=== PATIENT | male | born 1945 | race Caucasian/White ===

== ENCOUNTER 2021-12-06 13:41 | Emergency (ER) | payer MEDICARE, OTHER ==
[~2021-12-06] VITALS: Ht 177.8 cm; Wt 95.2 kg
[~2021-12-06 13:41] MED LIST: ACET325 PO; ASPI325 PO; ASPI81CH PO; FURO20 PO; GABA300 PO; GLIP10 PO; HYDR1TAB94 PO; LEVO750 PO; LISI5 PO; LOSA50 PO; LOVA40 PO; METF500 PO; METO25 PO; OXYC5 PO
[2021-12-06 14:36] LABS: BASOPHILS ABSOLUTE AUTO 0.03 K/mm3 (0.00-0.23); BASOPHILS PERCENT AUTO 0 % (0-2); EOSINOPHILS ABSOLUTE AUTO 0.21 K/mm3 (0.00-0.68); EOSINOPHILS PERCENT AUTO 2 % (0-6); Hematocrit 37.3 % (37.0-53.0); Hemoglobin 12.8 g/dL (13.5-17.5); IMMATURE GRAN ABSOLUTE AUTO 0.02 K/mm3 (0.00-0.10); IMMATURE GRAN PERCENT AUTO 0 % (0-1); LYMPHOCYTES ABSOLUTE AUTO 1.14 K/mm3 (0.84-5.20); LYMPHOCYTES PERCENT AUTO 13 % (21-46); MONOCYTES ABSOLUTE AUTO 0.67 K/mm3 (0.16-1.47); MONOCYTES PERCENT AUTO 8 % (4-13); Mean Corpuscular HGB 31.5 pg (26.0-34.0); Mean Corpuscular HGB Conc 34.3 g/dL (31.5-36.5); Mean Corpuscular Volume 92 fL (80-100); Mean Platelet Volume 11.1 fL (9.1-12.4); NEUTROPHILS ABSOLUTE AUTO 6.81 K/mm3 (1.96-9.15); NEUTROPHILS PERCENT AUTO 77 % (41-73); Platelet Count 164 K/mm3 (150-400); RDW Coefficient Variation 12.4 % (11.7-14.2); RDW Standard Deviation 41.5 fL (35.1-46.3); Red Blood Cell Count 4.06 M/mm3 (4.30-5.90); White Blood Cell Count 8.88 K/mm3 (4.00-11.30)
[2021-12-06 14:37] LABS: Source, Urine Clean Catch
[2021-12-06 14:40] LABS: Appearance, Urine Clear (Clear); Bilirubin, Urine Neg (Neg); Blood, Urine 3+ (Neg); Color, Urine Yellow (P-Yellow); Glucose Qualitative, Urine Neg (Neg); Ketones, Urine 1+ (Neg); Leukocyte Esterase, Urine Neg (Neg); Nitrite, Urine Neg (Neg); Protein, Urine 2+ (Neg); Urobilinogen, Urine NORM (Normal)
[2021-12-06 14:47] LABS: Bacteria Few /hpf; Squamous Epithelial Cells Not Seen /hpf (Few); White Blood Cells, Urine 0-2 /hpf (0-5)
[2021-12-06 14:57] LABS: Albumin, Blood 3.5 g/dL (3.4-5.0); Albumin/Globulin Ratio 0.8 (0.8-1.8); Bilirubin, Total 0.6 mg/dL (0.1-1.0); Bun/Creatinine Ratio 10.9 (12.0-20.0); Calcium, Blood 11.4 mg/dL (8.5-10.1); Creatinine, Blood 3.41 mg/dL (0.60-1.20); Globulin, Blood 4.2 g/dL (2.2-4.0); Potassium, Blood 4.4 mmol/L (3.5-5.5); Total Protein, Blood 7.7 g/dL (6.4-8.2)
== END 2021-12-06 22:00 | disposition home or self-care (01) ==
LOC: ER 13:41
PROVIDERS: Physician Assistant
DX: K59.00 Constipation, unspecified (principal); R10.9 Unspecified abdominal pain; I10 Essential (primary) hypertension; E11.9 Type 2 diabetes mellitus without complications; Z79.899 Other long term (current) drug therapy; Z79.82 Long term (current) use of aspirin; Z79.84 Long term (current) use of oral hypoglycemic drugs; Z87.891 Personal history of nicotine dependence
CPT/HCPCS: 36415; 74019; 80053; 81001; 85025; A9270; J7030

== ENCOUNTER 2023-04-25 12:11 | Inpatient (IN) | payer OTHER ==
[~2023-04-25] VITALS: Ht 177.8 cm; Wt 89.8 kg
[2023-04-25] MEDS ORDERED: ALLO100 PO (13:35)
[2023-04-25] MEDS ORDERED: TAMS.4ER PO (13:35)
[2023-04-25] MEDS ORDERED: CLOBETASOL EMOL15 G1 TOP (13:36)
[2023-04-25] MEDS ORDERED: SODBIC650 PO (13:36)
[2023-04-25] MEDS ORDERED: FURO20 PO (13:36)
[2023-04-25] MEDS ORDERED: INSULANI SC (13:37)
[2023-04-25] MEDS ORDERED: KETO15TC TOP (13:37)
[2023-04-25] MEDS ORDERED: Amaryl2 MG PO (13:38)
[2023-04-25] MEDS ORDERED: AMLO10 PO (13:40)
[2023-04-25] MEDS ORDERED: DOC250 PO (13:40)
[2023-04-25] MEDS ORDERED: FERROUS GLUCON240 MG PO (13:40)
[2023-04-25] MEDS ORDERED: NS 500 ML IV SCH (14:15)
[2023-04-25] MEDS ORDERED: FLU VACC QS2023-24(6MOS UP)/PF 60 MCG/0.5 ML SYRINGE IM SCH (17:00)
[2023-04-25] MEDS ORDERED: Acetaminophen 325 MG TABLET PO PRN (17:00)
[2023-04-25] MEDS ORDERED: Azithromycin 500 MG in NS 250 ML IV SCH (18:15)
[2023-04-25] MEDS ORDERED: Insulin Regular 100 UNIT/ML 10ML Vial SC SCH (20:00)
[2023-04-25 20:27] VITALS: BP 115/77
[2023-04-25] MEDS ORDERED: Docusate Sodium 250 MG Cap PO PRN (20:50)
[2023-04-25] MEDS ORDERED: Insulin Glargine-Yfgn 100 Unit/mL 3 ML SYR SC SCH (21:00)
[2023-04-25] MEDS ORDERED: Apixaban 5 MG Tab PO SCH ×2 (21:00)
[2023-04-25] MEDS ORDERED: Tamsulosin HCl 0.4 MG Cap PO SCH (21:00)
[2023-04-25] MEDS ORDERED: Metoprolol Tartrate 25 MG Tab PO SCH (21:00)
[2023-04-25] MEDS ORDERED: METO25 PO (21:22)
[2023-04-25] MEDS ORDERED: METO50 PO (21:22)
[2023-04-25] MEDS ORDERED: ATOR10 PO (21:23)
[2023-04-26 03:21] VITALS: BP 140/91
--- NOTE | 2023-04-26 04:00 | NUR ---
SHIFT SUMMARY 78 YR M ADMITTED ON 03/25/23. FULL CODE. PT HAD NO C/O PAIN OR DISCOMFORT THIS SHIFT BUT STATED THAT HE IS FRUSTRATED WITH COUGHING. EVENING BS WAS 272 AND GIVEN 20 UNITS OF GLARGINE. PT IS PLEASANT AND COOPERATIVE WITH CARE. ASIDE FROM CURRENT ILLNESS, PT STATES THAT HE IS OTHERWISE HEALTHY AND INDEPENDANT. HE USES URINAL AT BEDSIDE AND IS ABLE TO CALL APPROPRIATELY FOR ASSISTANCE. PLAN IS FOR NUCLEAR MED TEST TODAY.
[2023-04-26 05:04] LABS: BASOPHILS ABSOLUTE AUTO 0.02 K/mm3 (0.00-0.23); BASOPHILS PERCENT AUTO 0 % (0-2); EOSINOPHILS ABSOLUTE AUTO 0.01 K/mm3 (0.00-0.68); EOSINOPHILS PERCENT AUTO 0 % (0-6); Hematocrit 37.6 % (37.0-53.0); Hemoglobin 12.8 g/dL (13.5-17.5); IMMATURE GRAN ABSOLUTE AUTO 0.06 K/mm3 (0.00-0.10); IMMATURE GRAN PERCENT AUTO 1 % (0-1); LYMPHOCYTES ABSOLUTE AUTO 0.84 K/mm3 (0.84-5.20); LYMPHOCYTES PERCENT AUTO 9 % (21-46); MONOCYTES PERCENT AUTO 7 % (4-13); Mean Corpuscular HGB 30.8 pg (26.0-34.0); Mean Corpuscular Volume 90 fL (80-100); Mean Platelet Volume 11.6 fL (9.1-12.4); NEUTROPHILS ABSOLUTE AUTO 7.73 K/mm3 (1.96-9.15); NEUTROPHILS PERCENT AUTO 84 % (41-73); Platelet Count 175 K/mm3 (150-400); RDW Coefficient Variation 13.2 % (11.7-14.2); RDW Standard Deviation 43.7 fL (35.1-46.3); Red Blood Cell Count 4.16 M/mm3 (4.30-5.90); White Blood Cell Count 9.26 K/mm3 (4.00-11.30)
[2023-04-26 06:42] LABS: Albumin, Blood 2.4 g/dL (3.4-5.0); Albumin/Globulin Ratio 0.5 (0.8-1.8); Bilirubin, Total 0.5 mg/dL (0.1-1.0); Bun/Creatinine Ratio 17.8 (12.0-20.0); Calcium, Blood 10.7 mg/dL (8.5-10.1); Creatinine, Blood 1.97 mg/dL (0.60-1.20); Globulin, Blood 4.4 g/dL (2.2-4.0); Potassium, Blood 3.5 mmol/L (3.5-5.5); Total Protein, Blood 6.8 g/dL (6.4-8.2)
[2023-04-26] MEDS ORDERED: Insulin Human Lispro 100 Units/ML 3ML Syringe SC SCH ×2 (07:30→08:30)
[2023-04-26 07:46] VITALS: BP 175/159
[2023-04-26] MEDS ORDERED: NS 250 ML IV PRN (08:35)
[2023-04-26 08:38] LABS: Adenovirus Not Detected (NOT DETECT); Bordetella pertussis Not Detected (NOT DETECT); Coronavirus 229E Not Detected (NOT DETECT); Coronavirus HKU1 Not Detected (NOT DETECT); Coronavirus NL63 Not Detected (NOT DETECT); Coronavirus OC43 Not Detected (NOT DETECT); Human Metapneumovirus Not Detected (NOT DETECT); Human Rhinovirus/Enterovirus Not Detected (NOT DETECT); Influenza A/2009-H1 Not Detected (NOT DETECT); Influenza A/H1 Not Detected (NOT DETECT); Influenza A/H3 Not Detected (NOT DETECT); Influenza B Not Detected (NOT DETECT); Parainfluenza Virus 1 Not Detected (NOT DETECT); Parainfluenza Virus 2 Not Detected (NOT DETECT); Parainfluenza Virus 3 Not Detected (NOT DETECT); Parainfluenza Virus 4 Not Detected (NOT DETECT); Respiratory Syncytial Virus Not Detected (NOT DETECT); SARS-Cov-2 (COVID-19), BioFire Detected (NOT DETECT)
[2023-04-26 08:39] LABS: Chlamydophila pneumoniae Not Detected (NOT DETECT); Mycoplasma pneumoniae Not Detected (NOT DETECT)
[2023-04-26] MEDS ORDERED: AmLODIPine Besylate 5 MG Tab PO SCH (09:00)
[2023-04-26] MEDS ORDERED: Ferrous Gluconate 325 MG Tablet PO SCH (09:00)
[2023-04-26] MEDS ORDERED: Furosemide 20 MG Tab PO SCH (09:00)
[2023-04-26] MEDS ORDERED: Atorvastatin 10 MG Tab PO SCH (09:00)
[2023-04-26] MEDS ORDERED: GuaiFENesin 200 MG IR Tab PO PRN (09:00)
[2023-04-26] MEDS ORDERED: CefTRIAXone Sodium 2,000 MG in NS 100 ML IV SCH (09:00)
[2023-04-26] MEDS ORDERED: Allopurinol 100 MG Tab PO SCH (09:00)
[2023-04-26] MEDS ORDERED: GuaiFENesin 200 MG IR Tab PO ONE (09:00)
[2023-04-26] MEDS ORDERED: Aspirin 81 MG Chew PO SCH (09:00)
[2023-04-26] MEDS ORDERED: Metoprolol Tartrate 25 MG Tab PO SCH (09:00)
[2023-04-26 11:09] VITALS: BP 116/76
[2023-04-26 14:14] LABS: Acinetobacter baumannii DNA Not Detected copy/mL (NOT DETECT); Adenovirus DNA Not Detected (NOT DETECT); Chlamydia pneumonia Not Detected (NOT DETECT); Enterobacter cloacae DNA Not Detected copy/mL (NOT DETECT); Escherichia coli DNA Not Detected copy/mL (NOT DETECT); Haemophilus influenzae DNA Not Detected copy/mL (NOT DETECT); Human Coronavirus RNA Not Detected (NOT DETECT); Human Metapneumovirus RNA Not Detected (NOT DETECT); Influenza virus A RNA Not Detected (NOT DETECT); Influenza virus B RNA Not Detected (NOT DETECT); Klebsiella aerogenes DNA Not Detected copy/mL (NOT DETECT); Klebsiella oxytoca DNA Not Detected copy/mL (NOT DETECT); Klebsiella pneumoniae DNA Not Detected copy/mL (NOT DETECT); Legionella pneumophila Not Detected (NOT DETECT); Moraxella catarrhalis DNA Not Detected copy/mL (NOT DETECT); Mycoplasma pneumoniae Not Detected (NOT DETECT); Parainfluenza virus RNA Not Detected (NOT DETECT); Proteus sp DNA Not Detected copy/mL (NOT DETECT); Pseudomonas aeruginosa DNA Not Detected copy/mL (NOT DETECT); Respiratory syncytial Vir RNA Not Detected (NOT DETECT); Rhinovirus+Enterovirus RNA Not Detected (NOT DETECT); Serratia marcescens DNA Not Detected copy/mL (NOT DETECT); Staphylococcus aureus DNA Not Detected copy/mL (NOT DETECT); Streptococcus agalactiae DNA Not Detected copy/mL (NOT DETECT); Streptococcus pneumoniae DNA Not Detected copy/mL (NOT DETECT); Streptococcus pyogenes DNA Not Detected copy/mL (NOT DETECT)
[2023-04-26 15:28] VITALS: BP 127/81
[2023-04-26] MEDS ORDERED: Azithromycin 500 MG in NS 250 ML IV SCH (18:00)
--- NOTE | 2023-04-26 18:15 | NUR ---
SHIFT SUMMARY: NO ACUTE EVENTS. HYPERTENSIVE THIS MORNING BUT NORMOTENSIVE AFTER A.M. MEDS GIVEN. PRODUCTIVE COUGH, SPUTUM SENT. ON O2 @ 2 L/MIN NC. DENIED PAIN. VQ SCAN AND CXR COMPLETED. COVID ANTIGEN TEST NEGATIVE SO ISOLATION ORDER D/C'D. APPETIE REMAINS POOR, BUT IS IMPROVING. ENCOURAGING PO FLUIDS. USING URINAL INDEPENDENTLY. VISITED THIS AFTERNOON.
[2023-04-26 19:46] VITALS: BP 130/75
[2023-04-27 04:29] VITALS: BP 129/84
--- NOTE | 2023-04-27 04:48 | NUR ---
Pt. continues on 2L O2 via NC, RUL and RML coarse, moist on auscultation. No cough noted during this shift. HS CB scheduled Glargine given as ordered. Pt. rested comfortably t/o the shift, able to make needs known, no complaints offered. Call light at reach.
[2023-04-27 05:03] LABS: BASOPHILS ABSOLUTE AUTO 0.01 K/mm3 (0.00-0.23); BASOPHILS PERCENT AUTO 0 % (0-2); EOSINOPHILS ABSOLUTE AUTO 0.04 K/mm3 (0.00-0.68); EOSINOPHILS PERCENT AUTO 0 % (0-6); Hematocrit 37.1 % (37.0-53.0); Hemoglobin 12.3 g/dL (13.5-17.5); IMMATURE GRAN ABSOLUTE AUTO 0.08 K/mm3 (0.00-0.10); IMMATURE GRAN PERCENT AUTO 1 % (0-1); LYMPHOCYTES PERCENT AUTO 10 % (21-46); MONOCYTES ABSOLUTE AUTO 0.47 K/mm3 (0.16-1.47); MONOCYTES PERCENT AUTO 5 % (4-13); Mean Corpuscular HGB 30.6 pg (26.0-34.0); Mean Corpuscular HGB Conc 33.2 g/dL (31.5-36.5); Mean Corpuscular Volume 92 fL (80-100); NEUTROPHILS ABSOLUTE AUTO 7.72 K/mm3 (1.96-9.15); NEUTROPHILS PERCENT AUTO 84 % (41-73); Platelet Count 186 K/mm3 (150-400); RDW Coefficient Variation 13.2 % (11.7-14.2); RDW Standard Deviation 44.4 fL (35.1-46.3); Red Blood Cell Count 4.02 M/mm3 (4.30-5.90); White Blood Cell Count 9.22 K/mm3 (4.00-11.30)
[2023-04-27 05:33] LABS: Albumin, Blood 2.5 g/dL (3.4-5.0); Albumin/Globulin Ratio 0.6 (0.8-1.8); Bilirubin, Total 0.6 mg/dL (0.1-1.0); Bun/Creatinine Ratio 18.8 (12.0-20.0); Calcium, Blood 10.7 mg/dL (8.5-10.1); Creatinine, Blood 1.97 mg/dL (0.60-1.20); Globulin, Blood 4.1 g/dL (2.2-4.0); Potassium, Blood 3.3 mmol/L (3.5-5.5); Total Protein, Blood 6.6 g/dL (6.4-8.2)
[2023-04-27] MEDS ORDERED: Potassium Chloride 20 MEQ TabCR PO ONE (06:50)
[2023-04-27] MEDS ORDERED: Potassium Chloride 40 MEQ in NS 250 ML IV ONE (07:00)
[2023-04-27] MEDS ORDERED: Sodium Chloride 0.45% 1,000 ML IV SCH (07:00)
[2023-04-27 07:31] VITALS: BP 176/139
[2023-04-27 08:10] VITALS: BP 129/86
[2023-04-27 12:49] LABS: Bun/Creatinine Ratio 20.9 (12.0-20.0); Calcium, Blood 10.7 mg/dL (8.5-10.1); Creatinine, Blood 1.82 mg/dL (0.60-1.20); Potassium, Blood 4.2 mmol/L (3.5-5.5)
[2023-04-27] MEDS ORDERED: Benzonatate 100 MG Cap PO PRN (13:55)
[2023-04-27 15:48] VITALS: BP 136/70
[2023-04-27] MEDS ORDERED: Azithromycin 250 MG Tab PO SCH (18:00)
[2023-04-27 19:36] VITALS: BP 153/93
--- NOTE | 2023-04-27 19:57 | NUR ---
SHIFT SUMMARY- PT HAD A COUGH THIS AFTERNOON THAT WAS SO FREQUENT HE WAS HAVING TROUBLE CATCHING HIS BREATH IN BETWEEN, THE COUGH WAS WEAK AND NON PRODUCTIVE, CALLED DR LUGO AND RECIEVED AN ORDER FOR MARCO MURRAY. PT WAS ABLE TO REST A LITTLE AFTER RECIEVING THOSE. PRN GUAIFENISEN WAS GIVEN. PT HAS HAD A PRODUCTIVE COUGH TODAY. BEDSIDE REPORT COMPLETED WITH NIGHT RN. PT APPEARS TO FEEL MISERABLE, BUT NO OVERT SIGNS OF DISTRESS ARE NOTED AT THE TIME OF BEDSIDE REPORT, PT IN AND OUT OF SLEEP, ANSWERING QUESTIONS WHEN ASKED. CALL LIGHT IN REACH.
[2023-04-28 03:05] VITALS: BP 133/61
[2023-04-28 05:15] LABS: BASOPHILS ABSOLUTE AUTO 0.02 K/mm3 (0.00-0.23); BASOPHILS PERCENT AUTO 0 % (0-2); EOSINOPHILS ABSOLUTE AUTO 0.07 K/mm3 (0.00-0.68); EOSINOPHILS PERCENT AUTO 1 % (0-6); Hematocrit 37.4 % (37.0-53.0); Hemoglobin 12.3 g/dL (13.5-17.5); IMMATURE GRAN ABSOLUTE AUTO 0.06 K/mm3 (0.00-0.10); IMMATURE GRAN PERCENT AUTO 1 % (0-1); LYMPHOCYTES ABSOLUTE AUTO 0.79 K/mm3 (0.84-5.20); LYMPHOCYTES PERCENT AUTO 10 % (21-46); MONOCYTES ABSOLUTE AUTO 0.41 K/mm3 (0.16-1.47); MONOCYTES PERCENT AUTO 5 % (4-13); Mean Corpuscular HGB 30.8 pg (26.0-34.0); Mean Corpuscular HGB Conc 32.9 g/dL (31.5-36.5); Mean Corpuscular Volume 94 fL (80-100); Mean Platelet Volume 10.9 fL (9.1-12.4); NEUTROPHILS ABSOLUTE AUTO 6.44 K/mm3 (1.96-9.15); NEUTROPHILS PERCENT AUTO 83 % (41-73); Platelet Count 189 K/mm3 (150-400); RDW Coefficient Variation 13.2 % (11.7-14.2); RDW Standard Deviation 45.3 fL (35.1-46.3); White Blood Cell Count 7.79 K/mm3 (4.00-11.30)
[2023-04-28 05:47] LABS: Bun/Creatinine Ratio 18.8 (12.0-20.0); Calcium, Blood 10.7 mg/dL (8.5-10.1); Creatinine, Blood 1.81 mg/dL (0.60-1.20); Potassium, Blood 3.8 mmol/L (3.5-5.5)
--- NOTE | 2023-04-28 06:22 | NUR ---
SHIFT SUMMARY: PT IS ADMITTED FOR SEVERE SEPSIS AND IS A FULL CODE. IS ALERT AND ABLE TO MAKE NEEDS KNOWN. ADLs HAVE BEEN INDEPENDANT TO 1P STANDBY DEPENDING ON ACTIVITY. DENIES PAIN OR DISCOMFORT WHEN ASKED. BILATERAL IVs ARE PATENT WITH DRESSINGS THAT ARE CDI.
[2023-04-28 07:16] VITALS: BP 134/82
[2023-04-28 15:22] VITALS: BP 142/74
[2023-04-28 19:49] VITALS: BP 126/67
--- NOTE | 2023-04-28 20:30 | NUR ---
SHIFT SUMMARY- PT UP IN A RECLINER. AT THE TIME OF BEDSIDE REPORT HE HAD A COUGHING FIT THAT LEFT HIM BREATHLESS. HE WOULD LIKE TO NO LONGER BE SICK. PT IV HAS BEEN SL TODAY. BG SEEMS WELL MANAGED. LUNCH BG ELEVATED RELATED TO A MISUNDERSTANDING ABOUT JUICE AND BLOOD SUGAR EFFECTS. PT REQUESTED MORE GUAIFENISIN SYRUP WHEN HE CAN HAVE IT. HE HAS DECIDED TO SIT UP IN THE RECLINER [facility]. PT REMAINS ON 2L O2 VIA NC. PT CALL LIGHT IN REACH NO S&S OF DISTRESS ONCE REPORT WAS COMPLETED.
[2023-04-29 03:38] VITALS: BP 124/71
--- NOTE | 2023-04-29 04:31 | NUR ---
SHIFT SUMMARY RUSSELL HAD AN UNEVENTFUL NIGHT. HE WAS ALERT AND FULLY ORIENTED ON ASSESSMENT AND SITTING IN RECLINER. PT OPTED TO SLEEP IN THE RECLINER TONIGHT THE BED IS NOT COMFORTABLE. PT SATTING IN THE 90'S ON 2L NC. PT HAD A COUGHING FIT AT START OF SHIFT, RELIEVED WITH COUGH SYRUP. NO ACUTE EVENTS TONIGHT, NO NOTED CHANGES TO PT CONDITION. PT RESTING IN HIS RECLINER WITH CALL LIGHT IN REACH.
[2023-04-29 04:56] LABS: BASOPHILS ABSOLUTE AUTO 0.03 K/mm3 (0.00-0.23); BASOPHILS PERCENT AUTO 0 % (0-2); EOSINOPHILS ABSOLUTE AUTO 0.07 K/mm3 (0.00-0.68); EOSINOPHILS PERCENT AUTO 1 % (0-6); Hematocrit 35.1 % (37.0-53.0); Hemoglobin 11.5 g/dL (13.5-17.5); IMMATURE GRAN ABSOLUTE AUTO 0.08 K/mm3 (0.00-0.10); IMMATURE GRAN PERCENT AUTO 1 % (0-1); LYMPHOCYTES ABSOLUTE AUTO 0.89 K/mm3 (0.84-5.20); LYMPHOCYTES PERCENT AUTO 13 % (21-46); MONOCYTES ABSOLUTE AUTO 0.49 K/mm3 (0.16-1.47); MONOCYTES PERCENT AUTO 7 % (4-13); Mean Corpuscular HGB 30.3 pg (26.0-34.0); Mean Corpuscular HGB Conc 32.8 g/dL (31.5-36.5); Mean Corpuscular Volume 93 fL (80-100); Mean Platelet Volume 10.1 fL (9.1-12.4); NEUTROPHILS ABSOLUTE AUTO 5.18 K/mm3 (1.96-9.15); NEUTROPHILS PERCENT AUTO 77 % (41-73); Platelet Count 196 K/mm3 (150-400); RDW Coefficient Variation 13.2 % (11.7-14.2); RDW Standard Deviation 45.3 fL (35.1-46.3); Red Blood Cell Count 3.79 M/mm3 (4.30-5.90); White Blood Cell Count 6.74 K/mm3 (4.00-11.30)
[2023-04-29 05:15] LABS: Bun/Creatinine Ratio 18.6 (12.0-20.0); Calcium, Blood 10.6 mg/dL (8.5-10.1); Creatinine, Blood 1.88 mg/dL (0.60-1.20); Potassium, Blood 3.9 mmol/L (3.5-5.5)
[2023-04-29] MEDS ORDERED: NS 100 ML IV ONE (07:39)
[2023-04-29 07:43] VITALS: BP 123/75
[2023-04-29] MEDS ORDERED: ELIQUIS5 M2 PO (16:06)
[2023-04-29] MEDS ORDERED: BENZ100A PO (16:06)
[2023-04-29] MEDS ORDERED: CEFP200 PO (16:07)
[2023-04-29 16:09] VITALS: BP 121/71
[2023-04-29] MEDS ORDERED: Q-Tussin100 MG/5 M PO (16:09)
[2023-04-29] MEDS ORDERED: FERROUS GLUCON324 M2 PO (16:09)
--- NOTE | 2023-04-29 17:48 | NUR ---
DISCHARGE [id number] BY PT AND SPOUSE. HE VERBALIZSED UNDERSTanding meds and INSTRUCT.. IV X2 PULLED INTACT. NO TELE. PT WHEELED TO DOOR AT 1748 BY AIDE.
--- NOTE | 2023-04-29 18:14 | NUR ---
1215 REMOVED O2, PT DOING WELL, NO SOB. R/A 92-93% 1230 R/A 92-93% 1245 R/A 93% NO SOB, PT STATES FEELING WELL. 1330 STILL R/A 94% PT STATES FEELING WELL.
== END 2023-04-29 18:17 | disposition home health service (06) | DRG 871 ==
LOC: ER 12:11 → MEDS 16:58
PROVIDERS: Family Medicine; Student in an Organized Health Care Education/Training Program; ADMIT Hospitalist
DX: A41.9 Sepsis, unspecified organism (principal); I50.31 Acute diastolic (congestive) heart failure; J18.9 Pneumonia, unspecified organism; J96.01 Acute respiratory failure with hypoxia; N17.9 Acute kidney failure, unspecified; I13.0 Hypertensive heart and chronic kidney disease with heart failure and stage 1 through stage 4 chronic kidney disease, or unspecified chronic kidney disease; R65.20 Severe sepsis without septic shock; E11.22 Type 2 diabetes mellitus with diabetic chronic kidney disease; N18.9 Chronic kidney disease, unspecified; E87.6 Hypokalemia; N40.0 Benign prostatic hyperplasia without lower urinary tract symptoms; R79.1 Abnormal coagulation profile; E11.40 Type 2 diabetes mellitus with diabetic neuropathy, unspecified; H91.90 Unspecified hearing loss, unspecified ear; E78.5 Hyperlipidemia, unspecified; D63.1 Anemia in chronic kidney disease; E66.9 Obesity, unspecified; F17.210 Nicotine dependence, cigarettes, uncomplicated; Z86.16 Personal history of COVID-19; Z79.4 Long term (current) use of insulin; Z86.711 Personal history of pulmonary embolism; Z68.28 Body mass index [BMI] 28.0-28.9, adult
CPT/HCPCS: 0202U; 36415; 71046; 78580; 80048; 80053; 82947; 83880; 84484; 85025; 87426; 87633; 87811; 93005; 93010; 94664; 94760; 94761; 96360; 97116; 97162; 97165; 97530; 97535; 99285-25; A9270; A9540; J0456; J0696; J1815; J3480; J7030; J7050